=== PATIENT | female | born 1995 | race Two or more races ===

== ENCOUNTER 2018-07-16 17:58 | Emergency (ER) | payer MEDICAID ==
[2018-07-16 18:08] VITALS: BP 115/76
--- NOTE | 2018-07-16 18:23 | EDPHY ---
H & P Time Seen by Provider: 07/16/18 18:10 HPI/ROS: This patient complains of vesicular lesions and lip swelling as well as slight itching and burning consistent with prior episodes of herpes labialis outbreaks. Symptoms started 24 hr ago. She reports the discomfort is mild and seeks an antiviral medication and for treatment. She has had similar episodes in the past that have responded to acyclovir. She notes no exacerbating factors. She also reports that her tongue feels"funny"but has noticed any intraoral lesions. ROS: Constitutional: No fevers HEENT: No other complaints . No eye symptoms. integumentary: No skin rash Neuro: No headache 5 point ROS is otherwise negative Smoking Status: Never smoked Physical Exam: Physical Exam Vital signs are normal. General: No acute distress HEENT: Lips: Patient has few vesicular lesions the lower lip with mild edema. Intraoral exam reveals no intraoral fascicular lesions or other abnormal findings. Oropharynx is normal. Eyes: Pupils equal and react to light. Extraocular motions are intact. No conjunctival injection. Lungs: No respiratory distress. Cardiac: Brisk capillary refill is intact throughout. Skin: No rash or pallor. Neuro: Alert and oriented x3 with no sensorimotor deficits. Initial differential diagnosis: Herpes labialis, allergic dermatitis, impetigo Constitutional: Initial Vital Signs Temperature (C) 37 C 07/16/18 18:06 Heart Rate 91 07/16/18 18:06 Respiratory Rate 16 07/16/18 18:06 Blood Pressure 115/76 07/16/18 18:06 O2 Sat (%) 97 07/16/18 18:06 O2 Delivery Mode Room Air Allergies/Adverse Reactions: No Known Allergies Allergy (Unverified 07/16/18 18:08) Home Medications: Medication Instructions Recorded Aquaphor Ointment (*) 07/16/18 Prozac 10 MG (*) 07/16/18 Valacyclovir HCl [Valtrex] 2,000 mg PO Q12 #4 tablet 07/16/18 MDM/Departure - [facility] ED Course/Re-evaluation: Findings are consistent with herpes labialis. I initially prescribed Valtrex for this patient but the pharmacy called explaining that this is not covered by Medicaid. I then called and acyclovir cream instead. - Depart Disposition: Home, Routine, Self-Care Clinical Impression: Herpes labialis Condition: Fair Instructions: Oral Herpes Simplex Virus Infections (ED) Additional Instructions: Diagnosis: Herpes labialis Plan: Valtrex 2000 mg now and then 2000 mg 12 hr from the 1st dose to complete the course Tylenol and ibuprofen for discomfort as needed Follow up with primary care physician for any ongoing symptoms despite the treatment plan. Prescriptions: Valacyclovir HCl [Valtrex] 2,000 mg PO Q12 #4 tablet Referrals: [facility] [Other] - As per Instructions
== END 2018-07-16 18:30 | disposition home or self-care (01) ==
LOC: CED 17:58
DX: B00.1 Herpesviral vesicular dermatitis (principal)

== ENCOUNTER 2018-08-23 08:28 | Emergency (ER) | payer MEDICAID ==
[2018-08-23 08:36] VITALS: BP 127/64
--- NOTE | 2018-08-23 08:58 | EDPHY ---
H & P Time Seen by Provider: 08/23/18 08:35 HPI/ROS: HPI Rash around lips. 22-year-old female by private vehicle. This patient has a history of what is likely recurring impetigo for the last 3 years. She states that another diagnosis that was considered was herpes labialis. However, she has been treated multiple times with antivirals including acyclovir and in a couple of cases steroids with no affect. She states that amoxicillin has worked well for her in the past. She reports development of her typical outbreak rash which occurs around her lips about a week ago. She states that it starts off slowly and then progresses. She presents the emergency department complaining of irritation and swelling around her lips both upper and lower. No other associated signs or symptoms. She was seen in our emergency department in July for this complaint. She was diagnosed with herpes labialis at that time. She was prescribed acyclovir but this had no effect according to the patient. ROS: Constitutional: No fever, no chills. No weakness. Eyes: No discharge. No changes in vision. ENT: No sore throat. No nasal congestion or rhinorrhea. As above. Respiratory: No cough. No shortness of breath. Cardiac: No chest pain, no palpitations. Gastrointestinal: No abdominal pain, no vomiting, no diarrhea. Genitourinary: No hematuria. No dysuria or increased frequency with urination. Musculoskeletal: No back pain. No neck pain. No myalgias or arthralgias. Skin: As above. Neurological: No headache. No focal weakness or altered sensation. Past medical history: Pre diabetes, depression. As above. Social history: Nonsmoker. No alcohol. Here by herself. Physical Exam: General Appearance: Alert, no distress. This patient is responding to questions appropriately and in full sentences. This patient appears well- hydrated and well-nourished. Eyes: Pupils equal and round no pallor or injection. No lid edema, erythema or injection. ENT, Mouth: Mucous membranes are moist. The pharyngeal tissues are unremarkable. No edema or swelling. No asymmetry suggestive of abscess. No erythema or exudates. She does have some vesicular crusty like lesions around the sides of her mouth. This is consistent with impetigo. Herpes labialis should be considered as well. There is mild associated edema of the lips. She has no voice changes. No stridor. Neurological: Motor sensory function is grossly intact. Cranial nerves are normal. Gait is normal. Skin: Warm and dry, no rashes. Musculoskeletal: Neck is supple and nontender. No cervical, submental, submandibular lymphadenopathy. Extremities are symmetrical. All joints range without pain or impingement. Psychiatric: No agitation. No depression. Database: EKG: Imaging: Procedures: Emergency department course: Triage vital signs reviewed. Differential diagnosis includes herpes labialis versus impetigo. As noted above the patient states that she has not had any success with treatment using antiviral agents such as valacyclovir and acyclovir. She has had success with treatment with amoxicillin. Therefore, from the emergency department I will treat this as an impetigo. I suggested topical mupirocin as a trial, applied 3 times daily for 5-7 days. If she is not having relief in her symptoms I will also discharge her with a prescription for systemic antibiotics. 1st line treatment as cephalexin 500 mg four times daily for 7 days according to up-to-date. This provides good coverage against both strep and staph aureus. This plan was discussed with the patient. She feels comfortable going home with prescriptions for these medications. She will follow up with her primary care physician on Sunday for re-evaluation. Return to emergency department precautions were discussed with her. All of her questions were answered. She was discharged from the emergency department in good condition. Differential Diagnosis: The differential diagnosis on this patient includes but is not limited to impetigo, herpes labialis. This represents a partial list of diagnoses considered. These considerations are based on history, physical exam, past history, reassessment and diagnostic testing. Smoking Status: Never smoked Constitutional: Initial Vital Signs Temperature (C) 37.0 C 08/23/18 08:35 Heart Rate 89 08/23/18 08:35 Respiratory Rate 18 08/23/18 08:35 Blood Pressure 127/64 H 08/23/18 08:35 O2 Sat (%) 98 08/23/18 08:35 O2 Delivery Mode Room Air Allergies/Adverse Reactions: No Known Allergies Allergy (Unverified 08/23/18 08:34) Home Medications: Medication Instructions Recorded Aquaphor Ointment (*) 07/16/18 Prozac 10 MG (*) 07/16/18 Cephalexin [Keflex (*)] 500 mg PO Q6 7 Days cap 08/23/18 Mupirocin 22 gm TP TID #1 oint...g. 08/23/18 Departure - Departure Disposition: Home, Routine, Self-Care Clinical Impression: Impetigo Condition: Good Instructions: Impetigo (ED) Additional Instructions: Read and follow provided instructions. Follow-up with your primary care physician on Sunday for re-evaluation. Apply ointment to affected area 3 times daily for 5-7 days. If you are not starting to have relief in 2-3 days, fill prescription for oral antibiotics as discussed. Return to the emergency department for worsening symptoms or other serious concerns. Referrals: NONE *PRIMARY CARE P,. [Primary Care Provider] - As per Instructions Prescriptions: Cephalexin [Keflex (*)] 500 mg PO Q6 7 Days cap Mupirocin 22 gm TP TID #1 oint...g.
== END 2018-08-23 09:07 | disposition home or self-care (01) ==
LOC: CED 08:28
DX: L01.00 Impetigo, unspecified (principal); R73.03 Prediabetes